=== PATIENT | male | born 1980 | race Caucasian/White ===

== ENCOUNTER 2018-07-25 15:33 | Emergency (ER) | payer OTHER ==
--- NOTE | 2018-07-25 16:10 | EDM.PDOC ---
ED HPI GENERAL MEDICAL PROBLEM - General Chief Complaint: Exposure to Heat or Cold Stated Complaint: Bilateral cold exposure to fingers Time Seen by Provider: 07/25/18 15:45 Source of Information: Reports: Patient History Limitations: Reports: No Limitations - History of Present Illness INITIAL COMMENTS - FREE TEXT/NARRATIVE: Patient states he is here from [employer] working outside and was working to get a computer working and had thin gloves and states he noticed his fingers getting really cold so he went to the truck to warm up and noticed his5th fingers bilaterally were painful and white. He drove 20mins to get here in a warm truck and then was immediatly placed with warm blankets and warm soaks. Rates pain 3/10 constant and nonradiating. Onset: Today Onset Date: 07/25/18 Onset Time: 15:00 Duration: Minutes: (20), Improving Location: Reports: Upper Extremity, Left, Lower Extremity, Right Quality: Reports: Ache, Dull Severity: Moderate Improves with: Reports: Heat Therapy Worsens with: Reports: None - Related Data Allergies Allergy/AdvReac Type Severity Reaction Status Date / Time No Known Allergies Allergy Verified 07/25/18 15:40 Home Meds: Home Meds . [No Known Home Meds] 07/25/18 [History] Past Medical History - Past Health History Medical/Surgical History: Denies Medical/Surgical History - History Comment History Comment: reviewed adn agreee with nursing assessment Social & Family History - Tobacco Use Smoking Status *Q: Former Smoker Used Tobacco, but Quit: Yes Month/Year Tobacco Last Used: about a month ago - Living Situation & Occupation Occupation: Employed (reviewed and agree with nursing assessment.) ED ROS GENERAL - Review of Systems Review Of Systems: See Below Constitutional: Reports: No Symptoms Musculoskeletal: Reports: Other (pain in both fifth fingers) Skin: Reports: Cyanosis, Erythema (erythema of the dorsum of the hand and cyanosis of both 5th fingers as well as at the PIP and DIP joints on the left. ) Neurological: Reports: No Symptoms Psychiatric: Reports: No Symptoms Hematologic/Lymphatic: Reports: No Symptoms ED EXAM, GENERAL - Physical Exam Exam: See Below Exam Limited By: No Limitations General Appearance: Alert, WD/WN, No Apparent Distress Ears: Normal External Exam Nose: Normal Inspection, Normal Mucosa Throat/Mouth: Normal Inspection Head: Atraumatic, Normocephalic Neck: Normal Inspection, Supple, Non-Tender Respiratory/Chest: No Respiratory Distress, Lungs Clear Cardiovascular: Normal Peripheral Pulses, Regular Rate, Rhythm Extremities: Normal Capillary Refill, Pallor, Redness Neurological: Alert, Oriented Psychiatric: Normal Affect, Normal Mood Skin Exam: Warm (There is erythema over the dorsum of both hands/ with pallor over the dorsum of both 5th fingers and pallor over the DIP/ PIP joints on the right hand more than left), Dry, Intact, Erythema, Pallor, Other (erythema to the ) Course - Vital Signs Last Recorded V/S: Last Vital Signs Temp 97.3 F 07/25/18 15:38 Pulse 115 H 07/25/18 15:38 Resp 20 07/25/18 15:38 BP 130/88 07/25/18 15:38 Pulse Ox 98 07/25/18 15:38 - Orders/Labs/Meds Orders: Active Orders 24 hr Category Date Time Status Vaccines to be Administered [RC] PER UNIT ROUTINE Care 07/25/18 16:44 Ordered Meds: Medications Discontinued Medications Generic Name Dose Route Start Last Admin Trade Name Rudyq PRN Reason Stop Dose Admin Diphtheria/Tetanus/Acell Pertussis 0.5 ml 07/25/18 16:42 07/25/18 16:54 Adacel IM 07/25/18 16:43 0.5 ml .ONCE ONE Administration Ibuprofen 600 mg 07/25/18 16:41 07/25/18 16:47 Motrin PO 07/25/18 16:42 600 mg ONETIME ONE Administration - Re-Assessments/Exams Free Text/Narrative Re-Assessment/Exam: 07/25/18 16:56 Patient was placed in warm blankets for approx. 10 mins then warm 105degree water bath for 10 mins then repeated - patient was given tetanus and motrin 600mg P0 and then the patient was told to stay out of the cold all together - he was advised to keep hands covered at all times when outside use motrin and that the hands will probably blister- and he should see his PCP mid week for recheck- then to return if he is worried or gets worse. Departure - Departure Time of Disposition: 17:01 Disposition: Refer to Observation Condition: Good Clinical Impression: Frostbite of both hands - Discharge Information *PRESCRIPTION DRUG MONITORING PROGRAM REVIEWED*: No *COPY OF PRESCRIPTION DRUG MONITORING REPORT IN PATIENT MALACHI: No Instructions: Frostbite, [id number] Forms: ED Department Discharge Additional Instructions: Use 600-800mg of motrin every 6-8 hours as needed for pain Keep hands covered at all times when outside. Hands where it is white will probably form clear blisters - DO Pop them. See your primary care doctor mid week for recheck and return to the ER if you get worse or have increase in pain. - Problem List & Annotations (1) Frostbite of both hands SNOMED Code(s): 3429065 Code(s): T33.521A - SUPERFICIAL FROSTBITE OF RIGHT HAND, INITIAL ENCOUNTER; T33.522A - SUPERFICIAL FROSTBITE OF LEFT HAND, INITIAL ENCOUNTER Status: Acute Priority: High - Problem List Review Problem List Initiated/Reviewed/Updated: Yes - My Orders Last 24 Hours: My Active Orders 07/25/18 16:44 Vaccines to be Administered [RC] PER UNIT ROUTINE - Assessment/Plan Last 24 Hours: My Active Orders 07/25/18 16:44 Vaccines to be Administered [RC] PER UNIT ROUTINE Plan: use motrin 600mg as need every 6-8 hours Keep hands covered at all times when outside. f/u with PCP mid week for recheck.
[2018-07-25] MEDS ORDERED: Ibuprofen 200 MG Tab PO ONE (16:41)
[2018-07-25] MEDS ORDERED: Diphtheria,Pertussis(Acell),Tetanus Vaccine 0.5 ML Syringe IM ONE (16:42)
== END 2018-07-25 17:17 | disposition home or self-care (01) ==
LOC: CC.ED 15:33
DX: T33.531A Superficial frostbite of right finger(s), initial encounter (principal); T33.532A Superficial frostbite of left finger(s), initial encounter; Z23 Encounter for immunization; Z87.891 Personal history of nicotine dependence; X31.XXXA Exposure to excessive natural cold, initial encounter
CPT/HCPCS: 90471; 90715; 99283; A9270-GY